=== PATIENT | male | born 1985 | race African-American/Black ===

== ENCOUNTER 2017-01-08 19:34 | Emergency (ER) | payer BC, OTHER ==
[2017-01-08 19:43] VITALS: BP 121/76; PULSE 70; TEMP 98.1; BMI 24.3
--- NOTE | 2017-01-08 19:54 | PDOC ---
History of Present Illness - History of Present Illness Initial Comments: 01/08/17 20:00 The patient is a 31 year old male, with no significant past medical history, who presents to the emergency department with 2 weeks of sore throat, cough, and sinus congestion. The patient reports his symptoms are exacerbated at night and states his congestion gets worse at night. The patient reports an intermittent cough, productive of green sputum. He reports taking Theraflu but denies relief of symptoms. He denies recent sick contacts. He denies recent travel out of the country. He reports he is leaving for vacation tomorrow and wants to make sure he doesnt need antibiotics. He denies chest pain, shortness of breath, headache and dizziness. He denies fever, chills, nausea, vomit, diarrhea and constipation. He denies dysuria, frequency, urgency and hematuria. Adult PAST MEDICAL HISTORY: no significant history PAST SURGICAL HISTORY: none reported FAMILY HISTORY: no pertinent history SOCIAL HISTORY: Pt lives with family and is employed. MEDICATIONS: reviewed ALLERGIES: NKDA, as per nursing notes. ROS: General: No fevers or chills, no weakness, no weight loss HEENT: (+) Sinus congestion and sore throat; No change in vision. No ear pain CardioVascular: No chest pain or shortness of breath Respiratory: (+) cough; No wheezing. Gastrointestinal: no nausea, vomiting, diarrhea or constipation, No rectal bleeding Genitourinary: No dysuria, hematuria, or frequency Musculoskeletal: No joint or muscle pain or swelling Neurologic: No headache, vertigo, dizziness or loss of consciousness Psychiatric: No depression Skin: No rashes or easy bruising Endocrine: no increased thirst or abnormal weight change Allergic: no skin or latex allergy All other systems reviewed and normal Physical Exam: General: Well-nourished well-developed individual, no acute distress HEENT: Throat: Normal, tonsils normal, no erythema or exudate Neck: Supple, no meningeal signs, no lymphadenopathy Eyes::Pupils equal reactive and round, extraocular motion intact Chest: Nontender to palpation Cardiac: S1-S2 normal, regular rate and rhythm, no murmurs rubs or gallops Respiratory: Lungs clear to auscultation bilateral Abdomen: Soft, nondistended, normal bowel sounds, nontender to palpation diffusely Extremities: Warm, dry, no cyanosis, clubbing, or edema Skin: No rashes Neuro: Alert and oriented x3, nonfocal exam, grossly intact, normal gait Psych: Normal mood and affect <Anne-Marie Manning - Last Filed: 01/08/17 20:03> - General History Source: Patient Exam Limitations: No Limitations - History of Present Illness Initial Comments: 01/08/17 20:55 A portion of this note was documented by scribe services under my direction. I have reviewed the details of the note, within reason, and agree with the documentation. The case summary and management plan written by me. X-ray: Peribronchial thickening with questionable bronchitis on right Assessment and plan: This is a 31-year-old male comes in complaining of a productive cough 1 week. X-ray shows or may be some mild bronchitis. Patient started on azithromycin as he is going on vacation and will be out of the area. Patient discharged home will follow-up with his primary care doctor as needed. <Nuvia Capps I - Last Filed: 01/08/17 20:58> - General Chief Complaint: Cold Symptoms Stated Complaint: PRODUCTIVE COUGH Time Seen by Provider: 01/08/17 19:44 Past History <Anne-Marie Manning - Last Filed: 01/08/17 20:03> - Psycho/Social/Smoking Cessation Hx Anxiety: No Suicidal Ideation: No Smoking History: Unknown if ever smoked Have you smoked in the past 12 months: No Number of Cigarettes Smoked Daily: 0 Information on smoking cessation initiated: No Hx Alcohol Use: No Drug/Substance Use Hx: No Substance Use Type: None <Nuvia Capps I - Last Filed: 01/08/17 20:58> - Past Medical History Allergies/Adverse Reactions: Allergies Allergy/AdvReac Type Severity Reaction Status Date / Time No Known Allergies Allergy Unverified 01/08/17 19:38 Home Medications: Ambulatory Orders NK [No Known Home Medication] 01/08/17 *Physical Exam - Vital Signs Last Vital Signs Temp Pulse Resp BP Pulse Ox 98.1 F 70 14 121/76 100 01/08/17 19:36 01/08/17 19:36 01/08/17 19:36 01/08/17 19:36 01/08/17 19:36 <Anne-Marie Manning - Last Filed: 01/08/17 20:03> - Vital Signs Last Vital Signs Temp Pulse Resp BP Pulse Ox 98.1 F 70 14 121/76 100 01/08/17 19:36 01/08/17 19:36 01/08/17 19:36 01/08/17 19:36 01/08/17 19:36 <Nuvia Capps I - Last Filed: 01/08/17 20:58> *DC/Admit/Observation/Transfer - Attestations Scribe Attestion: 01/08/17 20:00 Documentation prepared by Anne-Marie Manning, acting as medical information specialist for Nuvia Capps MD <Anne-Marie Manning - Last Filed: 01/08/17 20:03> - Discharge Dispostion Admit: No <Nuvia Capps I - Last Filed: 01/08/17 20:58> Diagnosis at time of Disposition: Bronchitis - Discharge Dispostion Disposition: HOME Condition at time of disposition: Good - Patient Instructions Printed Discharge Instructions: DI for Acute Bronchitis Additional Instructions: Take azithromycin 1 tablet a day for the next 4 days you were given the first tablet here in the emergency room and did not need to take your next dose until tomorrow night before you go to bed. Tylenol or Motrin as needed for fever or pain. Return to the emergency department immediately with ANY new, persistent or worsening symptoms. Continue any medications as previously prescribed by your physician. You should follow up with your primary doctor as soon as possible regarding today's emergency department visit. . Please make sure your doctor reviews the results of your emergency evaluation. Thank you for coming to the Emergency Department today for your care. It was a pleasure to see you today. Please note that your evaluation is INCOMPLETE until you follow-up with your doctor.
[2017-01-08] MEDS ORDERED: AZITHROMYCIN 250 MG TABLET (FP) PO ONE (20:56)
[2017-01-08] MEDS ORDERED: AZITHROMYCIN 250 MG TABLET (FP) ONE (21:03)
== END 2017-01-08 21:04 | disposition home or self-care (01) ==
LOC: FER 19:34
DX: J40 Bronchitis, not specified as acute or chronic (principal)
CPT/HCPCS: 71020-TC; 99282-25